=== PATIENT | male | born 1990 | race Two or more races ===

== ENCOUNTER → 2020-03-11 | Outpatient (CLI) | payer OTHER ==
[2020-03-11 11:44] LABS: Cholesterol 156 mg/dL (< 200); HDL Cholesterol 35 mg/dL (40-59); LDL Cholesterol 107 mg/dL (< 100); Triglycerides 164 mg/dL (< 150)
== END | disposition home or self-care (01) ==
LOC: LAB 10:00
PROVIDERS: ATTEND Nurse Practitioner
DX: E78.5 Hyperlipidemia, unspecified (principal)
CPT/HCPCS: 36415; 80061